=== PATIENT | female | born 2000 | race Caucasian/White ===

== ENCOUNTER 2025-02-15 19:58 | Emergency (ER) | payer OTHER, SELFPAY ==
[2025-02-15 19:59] VITALS: BMI 45.6
[2025-02-15 20:07] VITALS: BP 119/83; PULSE 108; RESP 19; TEMP 36.7; O2SAT 99
--- NOTE | 2025-02-15 20:18 | PC.NURSE ---
Pt did not answer and was not found outside.
--- NOTE | 2025-02-15 21:03 | XR_ITS ---
Examination: PA lateral chest 2 views Technique: Upright PA lateral chest 2 views Date and time: February 15, 2025, 2114 hrs. Indications: Chest pain shortness of breath beginning 2 days ago. Findings: Normal heart size. The lungs are clear. The osseous structures are intact. Impression: No active disease.
--- NOTE | 2025-02-15 21:03 | PD.EDCHEST ---
ED Chest Pain RME/HPI General Chief Complaint: Chest Pain Stated Complaint: CHEST PAIN Time Seen by Provider: 02/15/25 20:10 Arrival date/time: 02/15/25 19:58 This is a 24-year-old female that comes into the emergency room with complaints of chest pain shortness of breath For the past 2 days. Patient also has a headache congestion. Patient does have a history of asthma. Patient also has a history of pulmonary embolus a couple years ago. Patient states it was unprovoked. Patient reports that she was on a blood thinner for a year and then they had her stop. Related Data Previous Rx's ?Medication ?Instructions ?Recorded ibuprofen 800 mg tablet 800 mg PO Q6H PRN pain #20 tabs 02/15/25 promethazine-DM 6.25 mg-15 mg/5 mL 5 ml PO Q6H PRN cough #240 mL 02/15/25 oral syrup Allergies Allergy/AdvReac Type Severity Reaction Status Date / Time No Known Allergies Allergy Verified 02/15/25 19:59 Review of Systems Review of Systems Systems Reviewed: All systems reviewed, normal except as documented Past Medical History Past Medical History Comments PMH COMMENT: denies ED Exam Narrative Physical exam: VITAL SIGNS: Reviewed. GENERAL APPEARANCE: Alert and interactive, follows commands, no acute distress, HEAD AND FACE: Non-traumatic. ENT: PERRL, conjuctiva pink and clear, eyelid no trauma, Mucous membrane moist. NECK: Supple, nontender, no nuchal rigidity. CHEST: No tenderness, no crepitus, no paradoxical movement, no retractions. LUNGS: Clear, well ventilated, symmetric, no rales, no wheezing, no rhonchi, no stridor, good breath sounds bilaterally. HEART: Regular rate, regular rhythm, no murmur, no gallops. ABDOMEN: Soft, nondistended, no guarding, nontender NEUROLOGICAL: Gross motor function intact sensory function intact, Appropriate for age. MUSCULOSKELETAL: low back nontender, full range of motion. EXTREMITIES: No redness no swelling no skin breakdown on bilateral foot and leg. Distal neurovascular status intact bilateral foot SKIN: Color pink, dry, no rash, no lacerations, no abrasions, no contusions. Course Quality Measures none Orders Category Date Time Status Bedside COVID-19 Antigen Test NOW Care 02/15/25 21:03 Completed Bedside Influenza A&B Antigen Test NOW Care 02/15/25 21:04 Completed EKG (ED ONLY) *Do not use* NOW Care 02/15/25 20:02 Completed EKG (ED Only) Stat Exams 02/15/25 20:02 Ordered XR chest 2V Stat Exams 02/15/25 21:03 Completed Acetaminophen Tab [Tylenol ES Tab] Med 02/15/25 21:03 Discontinued 1,000 mg PO X1 ONE Ibuprofen Tab [Motrin Tab] Med 02/15/25 21:03 Discontinued 800 mg PO X1 ONE Vital Signs Vital signs: Vital Signs Temperature 98.1 F 02/15/25 20:07 Pulse Rate 108 H 02/15/25 20:07 Respiratory Rate 19 02/15/25 20:07 Blood Pressure 119/83 02/15/25 20:07 Pulse Oximetry (%) 99 02/15/25 20:07 Oxygen Delivery Method Room Air 02/15/25 20:07 PROCEDURES: EKG Interpretation #1: Date of EK02/15/25 Time of EK:03 Rate: 105 Interpretation: Interpreted by me (sinus rhythm flipped t waves in inferior leads ) EKG Impression: Normal sinus rhythm, No ectopy, Normal QRS and Normal intervals Chest Pain MDM Narrative MDM Narrative:: chest x ray: Findings: Normal heart size. The lungs are clear. The osseous structures are intact. Impression: No active disease. Covid and influenza neg. Pt given tyelnol and ibuprofen for pain. Pt feels better. Spoke to patient and let them know if is likely they have an uri. Pt tolf to follow up with pmd in 1-2 days. Come back to ED if symptoms change or worsen. Patient data External records reviewed:: [facility] previous records Clinical information provided by:: patient Social determinants that could affect healthcare access:: none Patient has the following chronic illnesses:: none How is presenting disease/condition affected by chronic disease/condition?: no chronic disease Evaluation data The following diagnostics were reviewed and interpreted by me:: lab results and radiology exam(s) Lab and/or radiology exams considered but not ordered:: none Interpretation Summary: see note Medications / Prescriptions Medications or Prescriptions considered but not ordered:: none Medication administrations:: Medication Administration History Discontinued Medications Acetaminophen (Acetaminophen 500 Mg Tablet) 1,000 mg PO X1 ONE Stop: 02/15/25 21:04 Last Admin: 08/31/25 21:11 Dose: 1,000 mg Documented By: HAYLEY Ibuprofen (Ibuprofen Tab 400 Mg Tablet) 800 mg PO X1 ONE Stop: 02/15/25 21:04 Last Admin: 02/15/25 21:31 Dose: 800 mg Documented By: LILY see tommy Consultations Consultation(s) initiated? (list below): No Diagnosis Most likely diagnosis given after review of the tests above:: uri Admission Indicated Admission indicated?: not indicated Admission Request Was there a request for admission?: No Disposition Plan Disposition Plan: Discharge Discharge Attestation Discharge Attestation: The patient and all family members were given an opportunity to ask questions and understood the discharge instructions. Discharge instructions specifically effects, indications for sooner follow up or return to the emergency department, and the expected course of current diagnosis. Patient condition: Stable Discharge Plan Plan Patient Disposition: HOME (Self Care) Patient condition on transfer: Stable Prescriptions/Referrals Prescriptions/Med Rec: New ibuprofen 800 mg tablet 800 mg PO Q6H PRN (Reason: pain) Qty: 20 0RF promethazine-DM 6.25-15 mg/5 mL syrup 5 ml PO Q6H PRN (Reason: cough) Qty: 240 0RF Referrals: No Primary/Family,Physician [Primary Care Provider] - In 1 week Problem List Clinical Impression: URI (upper respiratory infection), Cough Patient/Caregiver Discharge Instructions Discharge Activity: activity as tolerated Education Materials: ED URI, Viral, No Abx (Adult) Additional Instructions: Follow up with primary provider in 1-2 days. Come back to ED if symptoms change or worsen Print Language: Frisian Stand Alone Forms: Donna Award Info., Patient Portal Info Letter PA/MANAGER OF REGULATORY AFFAIRS Supervising Physician LASHON/MANAGER OF REGULATORY AFFAIRS Supervising Physician: [email or web address]
[2025-02-15] MEDS: ACETAMINOPHEN 500 MG TABLET 1000 MG PO (21:11)
[2025-02-15] MEDS: IBUPROFEN TAB 400 MG TABLET 800 MG PO (21:31)
== END 2025-02-15 22:49 | disposition home or self-care (01) ==
PROVIDERS: Emergency Provider Emergency Medicine
DX: J06.9 Acute upper respiratory infection, unspecified (principal); R00.0 Tachycardia, unspecified
CPT/HCPCS: 71046; 93005; 99283; A9270

== ENCOUNTER 2025-04-03 05:09 | Emergency (ER) | payer OTHER, SELFPAY ==
[2025-04-03 05:10] VITALS: BP 118/81; PULSE 103; RESP 18; TEMP 36.8; O2SAT 98; BMI 45.4
--- NOTE | 2025-04-03 05:27 | EDRME_ITS ---
Rapid Medical Screening Exam [facility] Arrival date/time: 04/03/25 05:09 24F with history of cholecystectomy presents to ED with several days of worsening N/V, up ab pain/cramping, and non-bloody diarrhea. No recent sick contacts/travel. Patient denies dysuria and is not on her cycle. Chief Complaint: Abdominal Pain Vital signs: Vital Signs Temperature 98.3 F 04/03/25 05:10 Pulse Rate 103 H 04/03/25 05:10 Respiratory Rate 18 04/03/25 05:10 Blood Pressure 118/81 04/03/25 05:10 Pulse Oximetry (%) 98 04/03/25 05:10 Oxygen Delivery Method Room Air 04/03/25 05:10
[2025-04-03] MEDS: FAMOTIDINE 20 MG TABLET 40 MG PO (05:40)
[2025-04-03] MEDS: DICYCLOMINE 10 MG CAPSULE PO (05:40)
[2025-04-03] MEDS: ONDANSETRON ODT 4 MG TABRAP PO (05:41)
[2025-04-03 06:05] LABS: Collection Type, Urine Clean Catch
[2025-04-03 06:31] LABS: Bilirubin,Urine Negative (Negative); Blood,Urine Negative (Negative); Clarity,Urine Turbid (Clear/Hazy); Color,Urine Yellow (Lt Yel-Yel); Culture Indicated,Urine Not Indicated; Glucose, Urine Negative (Negative); Ketones,Urine Negative (Negative); Leukocyte Esterase,Urine Positive (Negative); Nitrite,Urine Negative (Negative); PH,Urine 5.5 (5.0-7.0); Protein,Urine Trace (Neg - Trace); RBC,Urine 3 /hpf (0-3); Specific Gravity,Urine 1.033 (1.001-1.035); Squamous Epithelial Cell,Urine 14 /hpf (0-5); Urobilinogen,Urine Negative mg/dL (0.0-1.0); WBC,Urine 8 /hpf (0-5)
[2025-04-03 06:38] LABS: HCG Qualitative,Urine Negative
[2025-04-03 06:39] LABS: Amphetamine/Methamp Scrn,U Negative (Negative); Barbiturate Screen,Urine Negative (Negative); Benzodiazepines Screen,Urine Negative (Negative); Benzoylecgonine Screen, Ur Negative (Negative); Fentanyl Screen,Urine Negative (Negative); Opiate Screen,Urine Negative (Negative); THC Screen,Urine Positive (Negative)
[2025-04-03 07:46] LABS: Basophils # (Auto) 0.0 Thou/mm3 (0.0-0.2); Basophils % (Auto) 0 % (0-2.5); Eosinophils # (Auto) 0.4 Thou/mm3 (0.0-0.5); Eosinophils % (Auto) 4 % (0-10); Hematocrit 43.3 % (36.0-46.0); Hemoglobin 14.0 g/dL (12.0-16.0); Immature Granulocytes Auto 0.03 Thou/mm3 (0.00-0.00); Lymphocytes # (Auto) 1.5 Thou/mm3 (1.0-4.8); Lymphocytes % (Auto) 13 % (10-50); Mean Corpuscular HGB Conc 32.3 g/dl (31.0-37.0); Mean Corpuscular Hemoglobin 28.8 pg (25.0-35.0); Mean Corpuscular Volume 89 fL (80-100); Monocytes # (Auto) 0.7 Thou/mm3 (0.0-0.8); Monocytes % (Auto) 6 % (0-12); Neutrophils # (Auto) 8.8 Thou/mm3 (1.8-7.7); Neutrophils % (Auto) 77 % (37-80); Nucleated Red Blood Cell # 0.00 Thou/mm3 (0.00-0.00); Nucleated Red Blood Cell % 0 /100 WBC (0); Platelet Count 316 Thou/mm3 (140-440); RDW Standard Deviation 46.0 fL (36.4-46.3); Red Blood Count 4.86 Miln/mm3 (4.00-5.20); White Blood Count 11.5 Thou/mm3 (3.6-11.0)
[2025-04-03 08:03] LABS: Alanine Aminotransferase 15 U/L (10-49); Albumin, Serum 4.4 gm/dL (3.5-5.0); Albumin/Globulin Ratio 1.7 (1.2-2.2); Alkaline Phosphatase 62 U/L (46-116); Anion Gap 9 (7-16); Aspartate Amino Transferase 19 U/L (0-34); BUN/Creatinine Ratio 16 Ratio (12-20); Bilirubin,Total 0.4 mg/dL (0.3-1.2); Blood Urea Nitrogen 13 mg/dL (9-23); Calcium 8.9 mg/dL (8.3-10.6); Calcium (Corrected) 8.9 mg/dL (8.5-10.1); Carbon Dioxide 25.5 mMol/L (20.0-31.0); Chloride 109 mMol/L (98-107); Creatinine (Component) 0.8 mg/dL (0.6-1.3); Estimated Creatinine Clearance 152.0 mL/min (>60); Globulin 2.6 gm/dL (2.3-3.5); Glucose 89 mg/dL (74-106); Lipase 33 U/L (12-53); Osmolality,Calculated 284 (275-295); Potassium 3.9 mMol/L (3.4-5.1); Sodium 143 mMol/L (136-145); Total Protein 7.0 gm/dL (5.7-8.2); eGFR > 60 See Note
--- NOTE | 2025-04-03 08:09 | XR_ITS ---
Examination: CT abdomen and pelvis without contrast. Coronal 3-D reconstructions. Sagittal 2-D reconstructions. Date and time of exam: April 03, 2025, 0819 hours INDICATIONS: Onset generalized abdominal pain nausea vomiting diarrhea beginning 3 days ago CTDI: vol (mGy): 22.1 DLP: (mGycm): 1330 Technique: Axial images of the abdomen have been obtained, 3 mm slice thickness Intravenous contrast material has not been administered. Low dose protocols were performed. One or more of the following dose reduction techniques were used; automated exposure control, adjustment of the mA and/or KV according to patient size, use of iterative reconstruction technique. Findings: No focal liver or splenic lesions Absent gallbladder No pancreatic or adrenal mass No perinephric stranding No renal or ureteral calculi, no hydronephrosis Aorta normal size Normal appendix No bowel obstruction No diverticulitis Anteverted uterus Contracted urinary bladder Osseous structures are intact IMPRESSION: No renal or ureteral calculi, no hydronephrosis Normal appendix No bowel obstruction diverticulitis or free air
[2025-04-03] MEDS: LOPERAMIDE 2 MG CAPSULE 4 MG PO (08:20)
--- NOTE | 2025-04-29 06:54 | PD.EDADULT ---
ED General RME/HPI General Chief complaint: Abdominal Pain Stated complaint: ABD PAIN NVD Time Seen by Provider: 04/03/25 06:10 Arrival date/time: 04/03/25 05:09 24-year-old female presents to the emergency department today for complaints of abdominal pain nausea vomiting and diarrhea ongoing x 1 day Limitations: no limitations RME / HPI RME / HPI narrative: 04/03/25 05:09 24F with history of cholecystectomy presents to ED with several days of worsening N/V, up ab pain/cramping, and non-bloody diarrhea. No recent sick contacts/travel. Patient denies dysuria and is not on her cycle. Related Data Previous Rx's ?Medication ?Instructions ?Recorded ibuprofen 800 mg tablet 800 mg PO Q6H PRN pain #20 tabs 02/15/25 promethazine-DM 6.25 mg-15 mg/5 mL 5 ml PO Q6H PRN cough #240 mL 02/15/25 oral syrup ibuprofen 800 mg tablet 800 mg PO TID PRN pain #30 tabs 04/03/25 loperamide 2 mg capsule (Imodium 2 mg PO Q6H PRN loose stool #14 04/03/25 A-D) caps metoclopramide HCl 10 mg tablet 10 mg PO Q6H PRN nausea and 04/03/25 (Reglan) vomiting #15 tabs metoclopramide HCl 10 mg tablet 10 mg PO Q6H PRN nausea and 04/08/25 (Reglan) vomiting #15 tabs Allergies Allergy/AdvReac Type Severity Reaction Status Date / Time No Known Allergies Allergy Verified 04/08/25 17:47 Review of Systems Review of Systems Systems Reviewed: All systems reviewed, normal except as documented Constitutional Constitutional: Reports system reviewed and no additional complaints, except as documented, Denies fever(s) and Denies headache(s) Eyes Eyes: Reports system reviewed and no additional complaints, except as documented and Denies blurry vision ENT Ears, Nose, Mouth, and Throat: Reports system reviewed and no additional complaints, except as documented, Denies headache(s), Denies nasal congestion and Denies nasal discharge Cardiovascular Cardiovascular: Reports system reviewed and no additional complaints, except as documented, Denies chest pain and Denies dyspnea Respiratory Respiratory: Reports system reviewed and no additional complaints, except as documented, Denies chest congestion, Denies cough and Denies dyspnea Gastrointestinal Gastrointestinal: Reports system reviewed and no additional complaints, except as documented, Reports abdominal pain, Reports loose stools, Reports nausea and Reports vomiting Integumentary/Breasts Skin/Breast: Reports system reviewed and no additional complaints, except as documented and Denies rash Neurologic Neurologic: Reports system reviewed and no additional complaints, except as documented, Reports as per HPI and Denies headache(s) Past Medical History Social History SMOKING STATUS: Current every day smoker ED Exam General Limitations: Present no limitations General appearance: Present alert and in no apparent distress Head Head exam: Present atraumatic, normocephalic and normal inspection Eye Eye exam: Present normal appearance, PERRL and EOMI; Absent conjunctival injection ENT ENT exam: Present normal exam, normal oropharynx and mucous membranes moist Neck Neck exam: Present normal inspection, full ROM and trachea midline Chest Chest inspection: Present normal inspection and symmetric chest wall rise Respiratory Respiratory exam: Present normal lung sounds bilaterally; Absent respiratory distress Cardiovascular Cardiovascular exam: Present regular rate, normal rhythm and normal heart sounds Abdominal Exam Abdominal exam: Present soft and normal bowel sounds; Absent distention, tenderness, guarding, rebound, rigidity, Corley's sign, Rovsing's sign or tenderness at McBurney's Point Abdominal tenderness: Absent RUQ or RLQ Extremities Exam Extremities exam: Present normal inspection and full ROM Back Exam Back exam: Present normal inspection and full ROM Neurological Exam Neurological exam: Present alert, oriented X3 and CN II-XII intact Psychiatric Psychiatric exam: Present normal affect and normal mood Skin Skin exam: Present warm, dry, intact and normal color Course Quality Measures none Orders Category Date Time Status CT abdomen pelvis wo con Stat Exams 04/03/25 08:09 Completed CBC Stat Lab 04/03/25 07:41 Completed CMP [Comprehensive Metabolic Panel] Stat Lab 04/03/25 07:41 Completed Drug Screen,Urine Stat Lab 04/03/25 05:55 Completed HCG Qualitative,Urine Stat Lab 04/03/25 05:55 Completed Lipase Stat Lab 04/03/25 07:41 Completed Urinalysis, C/S if Indicated Stat Lab 04/03/25 05:55 Completed Dicyclomine [Bentyl] Med 04/03/25 05:26 Discontinued 10 mg PO X1 ONE Famotidine [Pepcid] Med 04/03/25 05:26 Discontinued 40 mg PO X1 ONE Loperamide [Imodium] Med 04/03/25 08:09 Discontinued 4 mg PO X1 ONE Ondansetron Odt [Zofran Odt] Med 04/03/25 05:26 Discontinued 4 mg PO X1 ONE Vital Signs Vital signs: Vital Signs Temperature 98.3 F 04/03/25 05:10 Pulse Rate 103 H 04/03/25 05:10 Respiratory Rate 18 04/03/25 05:10 Blood Pressure 118/81 04/03/25 05:10 Pulse Oximetry (%) 98 04/03/25 05:10 Oxygen Delivery Method Room Air 04/03/25 05:10 O2 saturation 98% room air with normal Discharge Plan Plan Patient Disposition: HOME (Self Care) Discharge Disposition comment: Stable Prescriptions/Referrals Prescriptions/Med Rec: New loperamide [Imodium A-D] 2 mg capsule 2 mg PO Q6H PRN (Reason: loose stool) Qty: 14 0RF ibuprofen 800 mg tablet 800 mg PO TID PRN (Reason: pain) Qty: 30 0RF metoclopramide HCl [Reglan] 10 mg tablet 10 mg PO Q6H PRN (Reason: nausea and vomiting) Qty: 15 0RF No Action ibuprofen 800 mg tablet 800 mg PO Q6H PRN (Reason: pain) Qty: 20 0RF promethazine-DM 6.25-15 mg/5 mL syrup 5 ml PO Q6H PRN (Reason: cough) Qty: 240 0RF metoclopramide HCl [Reglan] 10 mg tablet 10 mg PO Q6H PRN (Reason: nausea and vomiting) Qty: 15 0RF Referrals: No Primary/Family,Physician [Primary Care Provider] - 04/06/25 Problem List Clinical Impression: Viral enteritis Patient/Caregiver Discharge Instructions Education Materials: Viral Gastroenteritis Additional Instructions: Please follow up with your primary care doctor in the next 24-48hrs for any worsening symptoms return here immediately Print Language: Bruneian Stand Alone Forms: Donna Award Info., Patient Portal Info Letter PA/BOILER OR ENGINE OPERATOR Supervising Physician PA/BOILER OR ENGINE OPERATOR Supervising Physician: Dr. hilliard MDM Narrative MDM hospital course (for use when minimal MDM required): 24-year-old female presents to the emergency department today for complaints of abdominal pain nausea vomiting and diarrhea ongoing x 1 day On exam patient well-appearing does not appear ill or toxic with distress Based on symptomatology symptoms are consistent with viral enteritis Differentials include but not limited to appendicitis, viral enteritis, UTI Lab work and imaging obtained no acute emergent findings noted Patient medicated here time reevaluation patient report symptoms improved Patient discharged home in no distress to follow-up with primary care doctor in the next 24 to 48 hours and for any worsening symptoms to return to the ER immediately Clinical Information Provided by: patient Medical Records reviewed [facility] Meds/Rx considered, not ordered None Labs/Rad/Tests considered, not ordered None Chronic Illness/Social Conditions which may negatively complicate care or outcome(s)-explain: None or not applicable EKG EKG not done Labs Labs: none Imaging Imaging interpretation: none Medication Administration(s) none Medication Administration History Discontinued Medications Dicyclomine HCl (Dicyclomine 10 Mg Capsule) 10 mg PO X1 ONE Stop: 04/03/25 05:27 Last Admin: 04/03/25 05:40 Dose: 10 mg Documented By: DAYTON Famotidine (Famotidine 20 Mg Tablet) 40 mg PO X1 ONE Stop: 04/03/25 05:27 Last Admin: 04/03/25 05:40 Dose: 40 mg Documented By: DAYTON Loperamide HCl (Loperamide 2 Mg Capsule) 4 mg PO X1 ONE Stop: 04/03/25 08:10 Last Admin: 04/03/25 08:20 Dose: 4 mg Documented By: LILLIAN Ondansetron HCl (Ondansetron Odt 4 Mg Tabrap) 4 mg PO X1 ONE; Protocol Stop: 04/03/25 05:27 Last Admin: 04/03/25 05:41 Dose: 4 mg Documented By: DAYTON Given Diagnosis Differential Diagnosis ED Complaint MDM: Viral enteritis, appendicitis, diverticulitis
== END 2025-04-03 09:24 | disposition home or self-care (01) ==
PROVIDERS: Physician Assistant; Emergency Provider Family Medicine
DX: A08.4 Viral intestinal infection, unspecified (principal)
CPT/HCPCS: 36415; 74176; 80053; 80307; 81001; 81025; 83690; 85025; 99283; Q0162; A9270

== ENCOUNTER 2025-04-08 17:43 | Emergency (ER) | payer OTHER, SELFPAY ==
[2025-04-08 18:01] VITALS: BP 115/81; PULSE 108; RESP 18; TEMP 36.8; O2SAT 96; BMI 44.6
--- NOTE | 2025-04-08 18:14 | EDNOTE_ITS ---
Nausea/Vomit./Diarrhea-RME/HPI General Chief complaint: Nausea/Vomiting/Diarrhea Stated complaint: Vomiting, diarrhea X 2 days Time Seen by Provider: 04/08/25 18:02 Arrival date/time: 04/08/25 17:43 24-year-old female seen 5 days ago for viral enteritis. Patient reports eating some raw meat. Patient states that she has had some diarrhea which slowly and stopped with the Imodium but she continues to have the abdominal cramping and vomiting. She denies blood or mucus in stools vomiting blood shortness of br eath fever chills or chest pain. Patient returns that she is unable to control the pain or the vomiting Limitations: no limitations Related Data Previous Rx's ?Medication ?Instructions ?Recorded ibuprofen 800 mg tablet 800 mg PO Q6H PRN pain #20 t abs 02/15/25 promethazine-DM 6.25 mg-15 mg/5 mL 5 ml PO Q6H PRN cou gh #240 mL 02/15/25 oral syrup ibuprofen 800 mg tablet 800 mg PO TID PRN pain #30 t abs 04/03/25 loperamide 2 mg capsule (Imodium 2 mg PO Q6H PRN loose stool #14 04/03/25 A-D) caps metoclopramide HCl 10 mg tablet 10 mg PO Q6H PRN nause a and 04/03/25 (Reglan) vomiting #15 tabs metoclopramide HCl 10 mg tablet 10 mg PO Q6H PRN nause a and 04/08/25 (Reglan) vomiting #15 tabs Allergies Allergy/AdvReac Type Severity Reaction Status Date / Time No Known Allergies Allergy Verified 04/08/25 17:47 Review of Systems Constitutional Constitutional: Denies chills, Denies fever(s) and Denies headache(s) ENT Ears, Nose, Mouth, and Throat: Denies headache(s) and Denies vertigo Cardiovascular Cardiovascular: Denies chest pain and Denies dyspnea Respiratory Respiratory: Denies cough and Denies dyspnea Gastrointestinal Gastrointestinal: Denies abdominal pain, Denies nausea and Denies vomiting Genitourinary Genitourinary: Denies dysuria and Denies hematuria Musculoskeletal Musculoskeletal: Denies back pain and Denies myalgias Integumentary/Breasts Skin/Breast: Denies erythema, Denies rash, Denies unusual bruising and Denies wounds Neurologic Neurologic: Denies headache(s) and Denies vertigo Past Medical History Social History SMOKING STATUS: Current every day smoker ED Exam General Limitations: Present no limitations General appearance: Present alert and in no apparent distress Eye Eye exam: Present normal appearance, PERRL and EOMI ENT ENT exam: Present normal exam, normal oropharynx and mucous membranes moist Neck Neck exam: Present normal inspection, full ROM and trachea midline Chest Chest inspection: Present normal inspection and symmetric chest wall rise Respiratory Respiratory exam: Present normal lung sounds bilaterally Cardiovascular Cardiovascular exam: Present regular rate, normal rhythm and normal heart sounds Abdominal Exam Abdominal exam: Present soft and normal bowel sounds Extremities Exam Extremities exam: Present normal inspection and full ROM Back Exam Back exam: Present normal inspection and full ROM Neurological Exam Neurological exam: Present alert, oriented X3 and CN II-XII intact Psychiatric Psychiatric exam: Present normal affect and normal mood Skin Skin exam: Present warm, dry, intact and normal color Course Course Course Narrative: A 24-year-old female diagnosed with viral enteritis presents with complaints of upset stomach, nausea, and vomiting. She is stable, non-toxic in appearance, and has stable vital signs. The patient is educated on the importance of maintaining adequate hydration and following the BRAT diet to aid in recovery. After receiving antiemetics, her symptoms appear to improve, and she will be prescribed a supply to take home. She is advised to follow up with her primary care provider if there is no improvement within 3 days. Quality Measures none Orders Category Date Time Status Metoclopramide Inj [Reglan Inj] Med 04/08/25 18:13 Discontinued 10 mg IM X1 ONE Vital Signs Vital signs: Vital Signs Temperature 98.3 F 04/08/25 18:01 Pulse Rate 108 H 04/08/25 18:01 Respiratory Rate 18 04/08/25 18:01 Blood Pressure 115/81 04/08/25 18:01 Pulse Oximetry (%) 96 04/08/25 18:01 Oxygen Delivery Method Room Air 04/08/25 18:01 Nausea/Vomiting/Diarrhea Patient data External records reviewed:: None Clinical information provided by:: patient Social determinants that could affect healthcare access:: none Patient has the following chronic illnesses:: none How is presenting disease/condition affected by chronic disease/condition?: no chronic disease Evaluation data The following diagnostics were reviewed and interpreted by me:: other (specify) (none) Lab and/or radiology exams considered but not ordered:: none Interpretation Summary: n/a Medications / Prescriptions Medications / Prescriptions considered but not ordered:: none Medication administrations:: Medication Administration History Discontinued Medications Metoclopramide HCl (Metoclopramide Inj 5 Mg/Ml Vial 2 Ml) 10 mg IM X1 ONE; Protocol Stop: 04/08/25 18:14 Last Admin: 04/08/25 18:33 Dose: 10 mg Documented By: GM as above Consultations Consultation(s) initiated? (list below): No Diagnosis Nausea Differential Diagnosis: traveler's diarrhea, food poisoning and gastroenteritis Most likely diagnosis given after review of the tests above:: Viral enteritis Admission Indicated Admission indicated?: not indicated Admission Request Was there a request for admission?: No Disposition Plan Disposition Plan: Discharge Discharge Attestation Discharge Attestation: The patient and all family members were given an opportunity to ask questions and understood the discharge instructions. Discharge instructions specifically effects, indications for sooner follow up or return to the emergency department, and the expected course of current diagnosis. Patient condition: Stable Discharge Plan Plan Patient Disposition: HOME (Self Care) Prescriptions/Referrals Prescriptions/Med Rec: New metoclopramide HCl [Reglan] 10 mg tablet 10 mg PO Q6H PRN (Reason: nausea and vomiting) Qty: 15 0RF No Action ibuprofen 800 mg tablet 800 mg PO Q6H PRN (Reason: pain) Qty: 20 0RF promethazine-DM 6.25-15 mg/5 mL syrup 5 ml PO Q6H PRN (Reason: cough) Qty: 240 0RF loperamide [Imodium A-D] 2 mg capsule 2 mg PO Q6H PRN (Reason: loose stool) Qty: 14 0RF ibuprofen 800 mg tablet 800 mg PO TID PRN (Reason: pain) Qty: 30 0RF metoclopramide HCl [Reglan] 10 mg tablet 10 mg PO Q6H PRN (Reason: nausea and vomiting) Qty: 15 0RF Referrals: No Primary/Family,Physician [Primary Care Provider] - In 1 week Problem List Clinical Impression: Viral enteritis Patient/Caregiver Discharge Instructions Discharge Activity: activity as tolerated Education Materials: ED Gastroenteritis, Viral (Adult) Additional Instructions: Your symptoms are most likely caused by a stomach virus.? Hydrate well with liquids that you can see through with the exception of alcohol such as Gatorade, water, mounika ailyn, broths, popsicles, Jell-O etc., until the diarrhea and/or vomiting stops then you may increase to the BRAT (bananas, rice, applesauce, toast) diet while continuing liquid diet and then slowly working back to a normal diet however you should avoid foods such as dairy products, spicy foods, caffeine products, citrus products, or foods with sauces as this may cause more stomach upset. If diarrhea is severe and uncontrolled you may try [id number] medications such as Maalox, Mylanta, Milk of Magnesia. If symptoms does not improve in the next 3-5 days follow-up with primary care provider. If stomach pain worsens or you develop a fever and persistent vomiting go to the ER or call 911 Print Language: Turkish Stand Alone Forms: Donna Award Info., Patient Portal Info Letter
[2025-04-08] MEDS: METOCLOPRAMIDE INJ 5 MG/ML VIAL 2 ML 10 MG IM (18:33)
== END 2025-04-08 19:39 | disposition home or self-care (01) ==
PROVIDERS: Emergency Provider Emergency Medicine
DX: A08.4 Viral intestinal infection, unspecified (principal)
CPT/HCPCS: 96372; 99282; J2765